=== PATIENT | male | born 1960 | race American Indian/Alaskan Native ===

== ENCOUNTER 2021-08-05 15:03 | Emergency (ER) | payer MEDICARE ==
--- NOTE | 2021-08-05 15:06 | Event Note ---
ED Screening Note ED Screening Note: FALL 10 FT FROM ROOF CO CP FALL YESTERDAY PAIN WORSE TODAY [facility]CP [facility] This initial assessment/diagnostic orders/clinical plan/treatment(s) is/are subject to change based on patients health status, clinical progression and re- assessment by fellow clinical providers in the ED. Further treatment and workup at subsequent clinical providers discretion. Patient/guardian urged not to elope from the ED as their condition may be serious if not clinically assessed and managed. Initial orders include: LABS/EKG XRAY/RO RIB FX
[2021-08-05 15:12] VITALS: BP 175/87
--- NOTE | 2021-08-05 15:56 | XRay Report ---
BILATERAL RIBS 4 VIEWS PA CHEST RADIOGRAPH INDICATION / CLINICAL INFORMATION: FALL 10 FT CO CP. COMPARISON: None available. FINDINGS: RIBS: No acute, displaced fracture or other acute abnormality. Chest: Cardiomediastinal silhouette: Normal cardiac size. Normal mediastinal contours. LUNGS: No acute findings. No pneumothorax. Signer Name: Joni Mayer MD Signed: 08/05/2021 3:52 PM Workstation Name: [id number]
[2021-08-05] MEDS ORDERED: oxyCODONE /ACETAMINOPHEN 5-325MG TAB PO ONE (15:59)
--- NOTE | 2021-08-05 16:03 | Emergency Department Report ---
ED Fall HPI - General Chief Complaint: Fall Stated Complaint: CHEST PAINS Time Seen by Provider: 08/05/21 15:05 Source: patient Mode of arrival: Ambulatory - History of Present Illness Initial Comments: Patient presents with right chest pain after a fall. He was actually up on a ladder working on installing a motion detection leg. The ladder started to slide. This was close to the second story. He tried to catch the gutter and did not. He ended up falling injuring his right ribs. He did hit his head but had no loss of consciousness. This happened yesterday. [facility] get [facility]. He is complaining of right rib pain. He denies any abdominal pain. There is no hip pain. He denies neck pain or back pain. He describes sharp and stabbing pain worse with movement and inspiration. When he takes a deep breath, he states that it feels like something is "going to explode in his chest." - Related Data Previous Rx's Medication Instructions Recorded Last Taken Type Oxycodone HCl/Acetaminophen 1 each PO Q6HR PRN #14 tablet 08/05/21 Unknown Rx [Percocet 10/325 mg] Allergies Allergy/AdvReac Type Severity Reaction Status Date / Time Iodinated Contrast Media AdvReac Vomiting Verified 08/05/21 15:11 ED Review of Systems ROS: Stated complaint: CHEST PAINS Other details as noted in HPI Comment: All other systems reviewed and negative Constitutional: denies: fever Eyes: denies: eye pain Respiratory: denies: cough Cardiovascular: as per HPI Endocrine: denies: unexplained weight loss Gastrointestinal: denies: abdominal pain Genitourinary: denies: dysuria Musculoskeletal: denies: back pain Skin: denies: rash Neurological: denies: headache Hematological/Lymphatic: denies: easy bruising ED Past Medical Hx - Past Medical History Previous Medical History?: No - Family History Family history: no significant - Social History Smoking Status: Never Smoker - Medications Home Medications: Home Medications Medication Instructions Recorded Confirmed Last Taken Type Oxycodone HCl/Acetaminophen 1 each PO Q6HR PRN #14 tablet 08/05/21 Unknown Rx [Percocet 10/325 mg] ED Physical Exam - General Limitations: No Limitations, Other (Pulse ox noted and normal) General appearance: alert, in distress (Moderate discomfort) - Head Head exam: Present: atraumatic, normocephalic, normal inspection - Eye Eye exam: Present: normal appearance, EOMI. Absent: scleral icterus - ENT ENT exam: Present: normal exam, normal orophraynx - Neck Neck exam: Present: normal inspection. Absent: tenderness, meningismus - Respiratory Respiratory exam: Present: normal lung sounds bilaterally, chest wall tenderness (Right side without crepitus). Absent: respiratory distress - Cardiovascular Cardiovascular Exam: Present: regular rate, normal rhythm - GI/Abdominal GI/Abdominal exam: Present: soft. Absent: tenderness - Extremities Exam Extremities exam: Present: normal capillary refill. Absent: calf tenderness - Back Exam Back exam: Present: tenderness (Right posterior ribs). Absent: CVA tenderness (R), CVA tenderness (L) - Neurological Exam Neurological exam: Present: alert, oriented X3, CN II-XII intact. Absent: motor sensory deficit - Psychiatric Psychiatric exam: Present: normal affect, normal mood - Skin Skin exam: Present: warm, dry ED Course Vital Signs 08/05/21 15:12 Temperature 97.8 F Pulse Rate 86 Respiratory 18 Rate Blood Pressure 175/87 [Left] O2 Sat by Pulse 96 Oximetry - Reevaluation(s) Reevaluation #1: 08/05/21 16:02 Chest x-ray was noted. CT and analgesics were ordered. Old records reviewed. Reevaluation #2: 08/05/21 18:14 CT was noted and the patient was discharged ED Medical Decision Making - Lab Data Result diagrams: 08/05/21 15:41 08/05/21 15:41 Rhythm strip: Normal sinus rhythm without ectopy per monitor observe 10 seconds. - EKG Data -: EKG Interpreted by Ak - EKG Data 08/05/21 18:14 EKG shows sinus bradycardia 51. Intervals are normal including a QRS of 86 and a QT corrected of 361. Patient has no ST elevation to suggest STEMI. There is no ST depression suggestive of ischemia. There is good R wave progression. This is a normal EKG other than rate. - Radiology Data Radiology results: report reviewed - Medical Decision Making Patient presents with right rib pain after a fall. Radiographically, rib fractures were noted on CT but not on plain films. There is no underlying lung injury. He does not have a pneumothorax. He does not have a pulmonary contusion. There is no right upper quadrant tenderness that would suggest hepatic injury or renal injury. He does not appear to be septic or toxic. There is no head trauma or loss of consciousness. He will be treated symptomatically with analgesics and outpatient follow-up. Critical care attestation.: If time is entered above; I have spent that time in minutes in the direct care of this critically ill patient, excluding procedure time. ED Disposition Clinical Impression: Fall Qualifiers: Encounter type: initial encounter Qualified Code(s): W19.XXXA - Unspecified fall, initial encounter Rib fractures Qualifiers: Encounter type: initial encounter Fracture type: closed Laterality: right Qualified Code(s): S22.41XA - Multiple fractures of ribs, right side, initial encounter for closed fracture Disposition: HOME / SELF CARE / HOMELESS Is pt being admited?: No Condition: Stable Additional Instructions: Drink plenty water. Take deep breaths. Return for problems. Use the pain medication. Follow-up with your regular doctor for recheck and further management. Do not drive while taking pain medication. Return for any problems or concerns. Prescriptions: Oxycodone HCl/Acetaminophen [Percocet 10/325 mg] 1 each PO Q6HR PRN #14 tablet PRN Reason: Pain Referrals: PRIMARY MD IGOR [Referring] - 3-5 Days TWIN GARCIA MD [Staff Physician] - 3-5 Days
[2021-08-05 16:14] LABS: Hematocrit 45.3 % (35.5-45.6); Hemoglobin 15.2 gm/dl (11.8-15.2); Mean Corpuscular HGB Conc 33 % (32-34); Mean Corpuscular Volume 92 fl (84-94); Platelet Count 309 K/mm3 (140-440); Red Cell Distribution Width 14.5 % (13.2-15.2)
[2021-08-05] MEDS ORDERED: KETOROLAC 30 MG/1 ML INJ IM ONE (16:37)
[2021-08-05 16:48] LABS: Alanine Aminotransferase 15 units/L (7-56); Albumin 3.7 g/dL (3.9-5); Blood Urea Nitrogen 8 mg/dL (9-20); Calcium 9.1 mg/dL (8.4-10.2); Hemolysis Index 28
[2021-08-05 16:49] LABS: BUN/Creatinine Ratio 11
--- NOTE | 2021-08-05 17:47 | Cat Scan Report ---
CT chest without contrast INDICATION : r chest trauma. TECHNIQUE: Axial imaging performed through the chest without the use of intravenous contrast. All C T scans at this location are performed using CT dose reduction for ALARA by means of automated exposu re control. COMPARISON: Rib series from today FINDINGS: Comminuted fractures of the right fourth-fifth ribs anterolaterally with surrounding soft tissue swelling/hematoma formation. No other fracture identified. Mild degenerative changes in the sp ine. The heart and great vessels appear unremarkable. Mild emphysematous changes are present with minimal right basilar atelectasis. No pneumothorax, conso lidation, or effusion. Limited imaging of the upper abdomen shows hepatic steatosis with nothing acute. IMPRESSION: Right-sided rib fractures as above. Signer Name: Maico Matson MD Signed: 08/05/2021 5:43 PM Workstation Name: [id number]
--- NOTE | 2021-08-06 09:14 | Electrocardiograph Report ---
[facility] Test Date: 2021-08-05 Test Time: 16:45:23 Pat Name: RIDDHI MULLINS Department: Room: Gender: M Manager User Experience: COLTON : 1960 Requested By: LINCOLN LAMB Order Number: [id number] Reading MD: Bill Villareal Measurements Intervals [place] Rate: 51 P: 42 [place]: 176 QRS: 55 QRSD: 86 T: 37 QT: 390 QTc: 361 Interpretive Statements Sinus bradycardia No previous ECG available for comparison Electronically Signed On 08-06-2021 9:14:09 EDT by Blil Villareal
== END 2021-08-05 18:35 | disposition home or self-care (01) ==
LOC: ED 15:03
DX: S22.41XA Multiple fractures of ribs, right side, initial encounter for closed fracture (principal); R10.11 Right upper quadrant pain; Z91.041 Radiographic dye allergy status; W18.39XA Other fall on same level, initial encounter; Y93.89 Activity, other specified; Y92.89 Other specified places as the place of occurrence of the external cause; Y99.8 Other external cause status
CPT/HCPCS: 36415; 71111; 71250; 80053; 82550; 84484; 85027; 93005; 96372; 99284; J1885